=== PATIENT | male | born 2000 ===

== ENCOUNTER 2018-10-07 18:09 | Emergency (ER) | payer BC, MEDICAID ==
--- NOTE | 2018-10-07 18:21 | ERPHSYRPT ---
- History of Present Illness Source: patient, police Exam Limitations: no limitations Timing/Duration: today, hour(s) (1-2 hrs ago took the drugs) Severity: mild Modifying Factors: Improves With: other (drug abuse) Associated Symptoms: other (upset and tearful), No nausea, No vomiting, No abdominal pain, No shortness of breath, No heartburn, No diaphoresis, No cough, No chest pain, No fever, No headaches, No rash, No syncope, No seizure Hx Tetanus, Diphtheria Vaccination/Date Given: Yes Hx Influenza Vaccination/Date Given: No Hx Pneumococcal Vaccination/Date Given: No <CRYS ARIAS - Last Filed: 10/07/18 19:02> <KOLE DAY - Last Filed: 10/07/18 21:23> - History of Present Illness Time Seen by Provider: 10/07/18 18:13 Physician History: patient brought in by police for medical clearence; patient walked in in [facility]; cooperative; stated used some Meth, and smoked a joint of Marijuana and took two 0.5 mg clonopins; has long hx of drug abuse intermittantly; not suicidal or homicidal; no Tylenol or ASA today; no acute medical problems no ETOH within 24 hours; no pains; no trouble breathing; No N&V or diarrhea; no seizures (CRYS ARIAS) Allergies/Adverse Reactions: No Known Drug Allergies Allergy (Unverified 02/11/13 11:14) Home Medications: Ciclesonide [Alvesco] 6.1 gm IH 02/11/13 [History] Loratadine 10 mg [Claritin 10 mg] 10 mg PO DAILY 02/11/13 [History] - Review of Systems Constitutional: No Symptoms Eyes: Tearing Ears, Nose, & Throat: Nose Congestion Respiratory: No Cough, No Cyanosis, No Dyspnea, No Wheezing Cardiac: No Chest Pain, No Palpitations, No Syncope Abdominal/Gastrointestinal: No Abdominal Pain, No Nausea, No Vomiting, No Diarrhea Genitourinary Symptoms: No Dysuria, No Hesitancy, No Incontinence, No Urinary Retention Musculoskeletal: No Symptoms Skin: No Symptoms Neurological: No Symptoms Psychological: Alcohol Abuse (occassionally), Drug Abuse (regularly - meth and THC), Depression, Emotional Lability, No Suicidal Ideations, No Homicidal Ideations, No Hallucinations, No Memory Loss Endocrine: No Symptoms Hematologic/Lymphatic: No Symptoms Immunological/Allergic: No Symptoms <CRYS ARIAS - Last Filed: 10/07/18 19:02> - Past Medical History Pertinent Past Medical History: Yes Respiratory History: Asthma (as a child) - Past Surgical History Past Surgical History: Yes Other Surgical History: TONSILECTOMY - Social History Smoking Status: Never smoker Exposure to second hand smoke: No Alcohol Use: Socially Drug Use: marijuana, methamphetamines, other (clonopin) Patient Lives Alone: No Significant Family History: no pertinent family hx <CRYS ARIAS - Last Filed: 10/07/18 19:02> - Physical Exam General Appearance: mild distress, alert, anxiety, thin, other (tearful) Eye Exam: PERRL/EOMI, eyes nml inspection, other (tearful and injected mildly; Pupils 3-4 mm and =) Ears, Nose, Throat Exam: TMs normal, pharynx normal, moist mucous membranes, other (lots of clear nasal D/C) Neck Exam: normal inspection, non-tender, supple, full range of motion, No meningismus, No JVD, No lymphadenopathy, No subcutaneous emphysema, No thyromegaly Respiratory Exam: normal breath sounds, lungs clear, airway intact, diminished breath sounds, No chest tenderness, No respiratory distress, No crackles/rales, No rhonchi, No wheezing Cardiovascular Exam: regular rate/rhythm, normal heart sounds, normal peripheral pulses, tachycardia (125), capillary refill <2 sec, No murmur, No edema Gastrointestinal/Abdomen Exam: soft, normal bowel sounds, No tenderness, No guarding, No rebound, No organomegaly Rectal Exam: deferred Back Exam: normal inspection, normal range of motion, No CVA tenderness, No vertebral tenderness, No rash Extremity Exam: normal inspection, normal range of motion, No marco's sign, No pedal edema Neurologic Exam: alert, oriented x 3, cooperative, meeting facilitator II-XII nml as tested, nml cerebellar function, nml station & gait, depressed mood/affect, other (no ataxia or nystagmus), No motor weakness, No slurred speech Skin Exam: normal color, warm, dry, No rash, No petechiae, No cyanosis SpO2 Interpretation: normal SpO2: 95 O2 Delivery: Room Air <ARIASCRSY KING - Last Filed: 10/07/18 19:02> - Nursing Vital Signs Nursing Vital Signs: Initial Vital Signs Temperature 98.2 F 10/07/18 18:19 Pulse Rate 125 H 10/07/18 18:19 Respiratory Rate 18 10/07/18 18:19 Blood Pressure 171/100 10/07/18 18:19 O2 Sat by Pulse Oximetry 95 10/07/18 18:19 Pain Scale Pain Intensity 0 - Course Nursing assessment & vital signs reviewed: Yes Rhythm Strip: Rate, Sinus Tachycardia (118) <ARIASCRYS - Last Filed: 10/07/18 19:02> - Course EKG Interpreted by Me: RATE (100 bpm), Sinus Rhythm, NORMAL AXIS, Other (EKG: Normal sinus rhythm, 100 bpm, normal axis, no acute ST or T wave changes normal EKG) - Radiology Exams Chest X-ray Interpretation: Interpreted by me (no acute disease process noted) <KOLE DAY - Last Filed: 10/07/18 21:23> Ordered Tests: Active Orders 24 hr Category Date Time Status Accucheck STAT Care 10/07/18 18:13 Active Accucheck STAT Care 10/07/18 20:15 Active Artist Model STAT Care 10/07/18 18:13 Active EKG-ER Only STAT Care 10/07/18 20:05 Active IV Insertion STAT Care 10/07/18 20:21 Active Other ED Treatment STAT Care 10/07/18 18:14 Active Pulse Oximetry (ED) STAT Care 10/07/18 18:13 Active Re-Check Vital Signs STAT Care 10/07/18 18:13 Active CHEST 1 VIEW (PORTABLE) Stat Exams 10/07/18 20:25 Taken ACETAMINOPHEN Stat Lab 10/07/18 18:35 Completed ARTERIAL BLOOD GASES Stat Lab 10/07/18 20:45 Completed CBC W DIFF Stat Lab 10/07/18 18:35 Completed CMP Stat Lab 10/07/18 18:35 Completed ETHYL ALCOHOL Stat Lab 10/07/18 18:35 Completed SALICYLATE Stat Lab 10/07/18 18:35 Completed Urine Triage Profile Stat Lab 10/07/18 18:35 Completed Medication Summary Generic Name Dose Route Start Last Admin Trade Name Freq PRN Reason Stop Dose Admin Sodium Chloride 1,000 mls @ 999 mls/hr 10/07/18 20:21 10/07/18 20:56 Sodium Chloride 0.9% 1000 Ml IV 10/07/18 21:21 999 mls/hr .Q1H1M STA Administration Discontinued Medications Generic Name Dose Route Start Last Admin Trade Name Nataly PRN Reason Stop Dose Admin Sodium Chloride Confirm 10/07/18 20:54 Sodium Chloride 0.9% 1000 Ml Administered 10/07/18 20:55 Dose 1,000 mls @ ud .ROUTE .STK-MED ONE Naloxone HCl 0.4 mg 10/07/18 20:28 10/07/18 20:56 Narcan 0.4 Mg/Ml IV 10/07/18 20:29 0.4 mg STAT ONE Administration Naloxone HCl Confirm 10/07/18 20:54 Narcan 0.4 Mg/Ml Administered 10/07/18 20:55 Dose 0.4 mg .ROUTE .STK-MED ONE Lab/Rad Data: Laboratory Result Diagrams 10/07/18 18:35 10/07/18 18:35 Laboratory Results 10/07/18 10/07/18 10/07/18 Range/Units 20:45 18:35 18:35 WBC 7.5 (4.0-10.5) K/mm3 RBC 4.79 (4.1-5.6) M/mm3 Hgb 15.1 (12.5-18.0) gm/dl Hct 44.2 (42-50) % MCV 92.3 (78-100) fl MCH 31.5 (26-32) pg MCHC 34.2 (32-36) g/dl RDW 12.5 (11.5-14.0) % Plt Count 322 (150-450) K/mm3 MPV 11.0 H (6-9.5) fl Gran % 55.7 (36.0-66.0) % Eos # (Auto) 0.18 (0-0.5) Absolute Lymphs (auto) 2.37 (1.0-4.6) Absolute Monos (auto) 0.73 (0.0-1.3) Lymphocytes % 31.5 (24.0-44.0) % Monocytes % 9.7 (0.0-12.0) % Eosinophils % 2.4 (0.00-5.0) % Basophils % 0.7 (0.0-0.4) % Absolute Granulocytes 4.19 (1.4-6.9) Basophils # 0.05 (0-0.4) Puncture Site RIGHT RADIAL pCO2 50 H (35-45) mmHg pO2 66 L (75-100) mmHg Base Excess 5.7 H (-2.0-2.0) O2 Saturation 90.9 L (94-100) g/dF ABG pH 7.41 (7.35-7.45) ABG HCO3 31.7 H* (22-28) ABG O2 Sat (Measured) 94.6 L (95-100) % Karthikeyan Test YES A-a Gradient 21 a/A Ratio 0.76 Hemoglobin 15.0 Carboxyhemoglobin 2.4 (0.0-6.9) % THgb Methemoglobin 1.5 (1.4-1.5) % Temperature 37.0 C POC O2 Flow Rate 21 % Sodium 141 (137-145) mmol/L Potassium 3.7 3.6 (3.5-5.1) mmol/L Chloride 100 (98-107) mmol/L Carbon Dioxide 28 (22-30) mmol/L Anion Gap 16.8 H (5-15) MEQ/L BUN 16 (9-20) mg/dL Creatinine 1.26 H (0.66-1.25) mg/dL Estimated GFR > 60.0 ML/MIN Glucose 140 H (74-106) mg/dL Calcium 10.6 H (8.4-10.2) mg/dL Total Bilirubin 1.90 H (0.2-1.3) mg/dL AST 57 (17-59) U/L ALT 23 (0-50) U/L Alkaline Phosphatase 54 (38-126) U/L Serum Total Protein 8.0 (6.3-8.2) g/dL Albumin 5.0 (3.5-5.0) g/dL Salicylates < 1.0 L (2-20) mg/dL Urine Opiates Level (NEGATIVE) Ur Methadone (NEGATIVE) Acetaminophen < 10 L (10-30) ug/ml Urine Barbiturates (NEGATIVE) Ur Phencyclidine (PCP) (NEGATIVE) Urine Amphetamine (NEGATIVE) U Benzodiazepine Level (NEGATIVE) Urine Cocaine (NEGATIVE) Urine Marijuana (THC) (NEGATIVE) Ethyl Alcohol (0-10) mg/dL 10/07/18 10/07/18 Range/Units 18:35 18:35 WBC (4.0-10.5) K/mm3 RBC (4.1-5.6) M/mm3 Hgb (12.5-18.0) gm/dl Hct (42-50) % MCV (78-100) fl MCH (26-32) pg MCHC (32-36) g/dl RDW (11.5-14.0) % Plt Count (150-450) K/mm3 MPV (6-9.5) fl Gran % (36.0-66.0) % Eos # (Auto) (0-0.5) Absolute Lymphs (auto) (1.0-4.6) Absolute Monos (auto) (0.0-1.3) Lymphocytes % (24.0-44.0) % Monocytes % (0.0-12.0) % Eosinophils % (0.00-5.0) % Basophils % (0.0-0.4) % Absolute Granulocytes (1.4-6.9) Basophils # (0-0.4) Puncture Site pCO2 (35-45) mmHg pO2 (75-100) mmHg Base Excess (-2.0-2.0) O2 Saturation (94-100) g/dF ABG pH (7.35-7.45) ABG HCO3 (22-28) ABG O2 Sat (Measured) (95-100) % Karthikeyan Test A-a Gradient a/A Ratio Hemoglobin Carboxyhemoglobin (0.0-6.9) % THgb Methemoglobin (1.4-1.5) % Temperature C POC O2 Flow Rate % Sodium (137-145) mmol/L Potassium (3.5-5.1) mmol/L Chloride (98-107) mmol/L Carbon Dioxide (22-30) mmol/L Anion Gap (5-15) MEQ/L BUN (9-20) mg/dL Creatinine (0.66-1.25) mg/dL Estimated GFR ML/MIN Glucose (74-106) mg/dL Calcium (8.4-10.2) mg/dL Total Bilirubin (0.2-1.3) mg/dL AST (17-59) U/L ALT (0-50) U/L Alkaline Phosphatase (38-126) U/L Serum Total Protein (6.3-8.2) g/dL Albumin (3.5-5.0) g/dL Salicylates (2-20) mg/dL Urine Opiates Level NEGATIVE (NEGATIVE) Ur Methadone NEGATIVE (NEGATIVE) Acetaminophen (10-30) ug/ml Urine Barbiturates NEGATIVE (NEGATIVE) Ur Phencyclidine (PCP) NEGATIVE (NEGATIVE) Urine Amphetamine POSITIVE (NEGATIVE) U Benzodiazepine Level NEGATIVE (NEGATIVE) Urine Cocaine NEGATIVE (NEGATIVE) Urine Marijuana (THC) POSITIVE (NEGATIVE) Ethyl Alcohol < 10 (0-10) mg/dL reviewed (CRYS ARIAS) - Progress Progress: improved, re-examined Counseled pt/family regarding: lab results, diagnosis, need for follow-up <CRYS ARIAS - Last Filed: 10/07/18 19:02> <KOLE DAY - Last Filed: 10/07/18 21:23> - Progress Progress Note: 10/07/18 18:30 FSBS = 131 Sats 95% RA in police custody 10/07/18 18:35 will get labs; monitor and recheck 10/07/18 18:50 recheck; VS improving; labs pending; Police at bedside; patient cooperative - no complaints 10/07/18 19:02 Dr Day here and will sign out the patient to him, Patient stable (CRYS ARIAS) 10/07/18 20:17 This is a 18-year-old white male who is brought by the police for medical clearance who initially was seen by Dr. Arias patient had stated he was using meth and smoke some marijuana and took 2 0.5 mg Clonopin he has a history of drug use in the past he is not suicidal or homicidal. Patient initially arrives tearful as noted by Dr. Arias Patient's labs obtained are remarkable for alcohol less than 10 urine drug screen positive for THC and methamphetamines Patient was EKG remarkable for sinus rhythm 100 bpm normal axis no acute ST or T wave changes After EKG and I come in to talk to the patient and police patient the appears to be asleep however he tends a role as I up when I look inside his eyes. Patient does not appear to be in acute distress vitals are stable. Head atraumatic normocephalic. Eyes PERRLA EOMI fundi are unremarkable. Ears TMs quintero intact bilaterally. Nose is clear. Throat is clear. Neck is supple. Lungs are clear. Heart regular rate and rhythm without murmur. Abdomen soft nontender nondistended positive bowel sounds. Extremities full range of motion pulse equal and symmetrical 2 over 4 . Neuro cranial nerves II through XII are intact DTRs symmetrical 2 over 4 patient appears be somnolent. Impression substance abuse Plan Will check Accu-Chek patient appears to be intact neurologically. 10/07/18 21:19 Patient appeared to be stable I went in and checked on the patient he seemed to be excessively somnolent he didn't seem to avert his eyes when I would open his eyes he with [place] when nurses went to place an IV. I went ahead and ordered normal saline ordered Narcan 0.4 mg IV patient really not waking up after Narcan. Patient was positive for amphetamines and THC ABGs dark and obtain pH 7.41 PCO2 50 PO2 66 bicarbonate 31.7 pulse oximetry 94.6 Patient with CBC white blood cell some 0.5 hemoglobin 15.1 hematocrit 44.2 platelets 322 chemistry sodium 141 potassium 3.6 chloride 100 bicarbonate 28 BUN 16 creatinine 1.26 glucose 140 acetaminophen level less than 10 salicylate level less than 1.0 Patient briefly had decreased O2 sat which resolved with positioning currently 93% patient is protecting his airway. Chest x-ray no acute disease process noted. I had planned on discussing case with Dr. Smith and placing patient on ICU however family wishes the patient to go to [facility]. I've discussed the patient's case with Dr. Wynne as well as his labs physical findings EKG findings chest x-ray. He has excepted patient to transfer to [facility] ER. Impression 1 substance abuse 2. Mental status change. 3 somnolence. (KOLE DAY) - Departure Critical Care Time: No <CRYS ARIAS - Last Filed: 10/07/18 19:02> - Departure Time of Disposition: 21:22 Departure Disposition: Transfer [facility]) Critical Care Time: No <KOLE DAY - Last Filed: 10/07/18 21:23> - Departure Clinical Impression: Substance abuse, Somnolence Change in mental status Qualifiers: Altered mental status type: unspecified Qualified Code(s): R41.82 - Altered mental status, unspecified Condition: Fair Referrals: [facility] [NON-STAFF PHY W/O PRIVILEGES] -
[2018-10-07 18:52] LABS: Barbiturate,Urine NEGATIVE (NEGATIVE); Benzodiazepine,Urine NEGATIVE (NEGATIVE); Cocaine,Urine NEGATIVE (NEGATIVE); Methadone,Urine NEGATIVE (NEGATIVE); Opiate,Urine NEGATIVE (NEGATIVE); PCP,Urine NEGATIVE (NEGATIVE); THC,Urine POSITIVE (NEGATIVE)
[2018-10-07] MEDS ORDERED: Sodium Chloride 0.9% 1000 ML 1,000 ML IV STA (20:21)
[2018-10-07] MEDS ORDERED: Narcan 0.4 MG/ML IV ONE (20:28)
[2018-10-07 20:42] LABS: Amphetamine,Urine POSITIVE (NEGATIVE)
[2018-10-07 20:43] LABS: BASOPHIL % 0.7 % (0.0-0.4); Basophil (Absolute #) 0.05 (0-0.4); Eosinophil % 2.4 % (0.00-5.0); Eosinophil (Absolute #) 0.18 (0-0.5); Granulocyte Absolute (ANC) 4.19 (1.4-6.9); Granulocytes % 55.7 % (36.0-66.0); Hematocrit 44.2 % (42-50); Hemoglobin 15.1 gm/dl (12.5-18.0); Lymphocyte (Absolute #) 2.37 (1.0-4.6); Lymphocytes % 31.5 % (24.0-44.0); Mean Cell Volume 92.3 fl (78-100); Mean Corpuscular Hemoglobin 31.5 pg (26-32); Mean Corpuscular Hgb Concent. 34.2 g/dl (32-36); Monocyte (Absolute #) 0.73 (0.0-1.3); Monocytes % 9.7 % (0.0-12.0); Platelet Count 322 K/mm3 (150-450); Red Blood Count 4.79 M/mm3 (4.1-5.6); Red Cell Distribution Width 12.5 % (11.5-14.0); White Blood Count 7.5 K/mm3 (4.0-10.5)
[2018-10-07 20:48] LABS: ACETAMINOPHEN < 10 ug/ml (10-30); ALKALINE PHOSPHATASE 54 U/L (38-126); ANION GAP 16.8 MEQ/L (5-15); BLOOD UREA NITROGEN 16 mg/dL (9-20); CHLORIDE 100 mmol/L (98-107); Calcium 10.6 mg/dL (8.4-10.2); Carbon Dioxide 28 mmol/L (22-30); Creatinine 1 1.26 mg/dL (0.66-1.25); Glucose 140 mg/dL (74-106); Potassium 3.6 mmol/L (3.5-5.1); SALICYLATE < 1.0 mg/dL (2-20); SGOT/AST 57 U/L (17-59); SGPT/ALT 23 U/L (0-50); SODIUM 141 mmol/L (137-145)
[2018-10-07 20:51] LABS: A-aADO2 21; ABG POTASSIUM 3.7 (3.5-5.1); ABG SITE RIGHT RADIAL; ALLEN TEST OK? YES; ARTERIAL BLD GAS O2 SATURATION 94.6 % (95-100); ARTERIAL BLOOD GAS BASE EXCESS 5.7 (-2.0-2.0); ARTERIAL BLOOD GAS FIO2 21 %; ARTERIAL BLOOD GAS PCO2 50 mmHg (35-45); ARTERIAL BLOOD GAS PO2 66 mmHg (75-100); ARTERIAL BLOOD GAS pH 7.41 (7.35-7.45); CARBOXYHEMOGLOBIN 2.4 % THgb (0.0-6.9); HCO3- 31.7 (22-28); HGB O2 SAT 90.9 g/dF (94-100); Methhemoglobin 1.5 % (1.4-1.5); paO2 pAO1 0.76
[2018-10-07] MEDS ORDERED: Sodium Chloride 0.9% 1000 ML 1,000 ML ONE ×2 (20:54→22:10)
[2018-10-07] MEDS ORDERED: Narcan 0.4 MG/ML ONE (20:54)
[2018-10-07 22:20] VITALS: BP 118/78; PULSE 84; O2SAT 97
--- NOTE | 2018-10-08 08:54 | XRAY ---
Indication: Decreased oxygenation. Substance abuse. Comparison: None Portable chest demonstrates normal heart and lungs. Bony thorax intact.
== END 2018-10-07 22:21 | disposition short-term general hospital (02) ==
LOC: ED 18:09
DX: F15.10 Other stimulant abuse, uncomplicated (principal); F12.90 Cannabis use, unspecified, uncomplicated; R00.0 Tachycardia, unspecified; R40.0 Somnolence; R41.82 Altered mental status, unspecified
CPT/HCPCS: 36000; 36415; 36600; 71045; 80053; 80307; 82375; 82803; 82962; 85025; 93005; 93041; 96374; 99285; G0481; J2310; G0480